=== PATIENT | female | born 1950 | race Caucasian/White ===

== ENCOUNTER → 2017-08-10 | Outpatient (CLI) | payer MEDICARE, OTHER ==
[~2017-08-10] MED LIST: PANTOPRAZOLE SO40 MG PO; PREMARIN0.3 MG PO
--- NOTE | 2017-08-13 16:00 | Diagnostic Imaging Report ---
#[id number] - MGSCRBIL #BILATERAL DIGITAL SCREENING MAMMOGRAM WITH CAD: 08/10/2017 CLINICAL: Routine screening. Comparison is made to exams dated: 10/25/2014 mammogram and 02/24/2011 mammogram - [facility] [place]. Current study contains 4 films. The tissue of both breasts is heterogeneously dense. This may lower the sensitivity of mammography. Current study was also evaluated with a Computer Aided Detection (CAD) system. There are benign calcifications in both breasts. No significant masses, calcifications, or other findings are seen in either breast. There has been no significant interval change. IMPRESSION: BENIGN There is no mammographic evidence of malignancy. A 1 year screening mammogram is recommended. The patient will be notified by letter of the results. Rian quintana/balbir:08/13/2017 12:33:57 [employer] Farmer: Damari GAITAN(R)(M), [facility] [place] letter sent: Compared to Prior B9 Mammogram BI-RADS: 2 Benign
== END ==
LOC: CARD 08:30
PROVIDERS: ATTEND Internal Medicine
DX: Z12.31 Encounter for screening mammogram for malignant neoplasm of breast (principal); R09.89 Other specified symptoms and signs involving the circulatory and respiratory systems
CPT/HCPCS: 77067; 93880

== ENCOUNTER → 2017-10-06 | Day surgery (SDC) | payer MEDICARE, OTHER ==
[2017-10-05 14:35] LABS: BASOPHILS # (AUTO) 0.1 (0.0-0.1); BASOPHILS % 0.7 % (0.0-1.0); EOSINOPHILS # (AUTO) 0.2 (0.0-0.4); EOSINOPHILS % 2.9 % (0.0-6.0); HEMATOCRIT 36.8 % (34.2-44.1); HEMOGLOBIN 11.6 g/dL (12.0-16.0); LYMPHOCYTES # (AUTO) 1.8 (1.0-3.2); LYMPHOCYTES % 26.2 % (18.0-39.1); MEAN CORPUSCULAR HEMOGLOBIN 27.8 pg (28-32); MEAN CORPUSCULAR HGB CONC 31.5 g/dL (31-35); MEAN CORPUSCULAR VOLUME 88.2 fL (81-99); MONOCYTES # (AUTO) 0.6 (0.2-0.8); MONOCYTES % 9.2 % (4.4-11.3); NEUTROPHILS # (AUTO) 4.2 (2.1-6.9); NEUTROPHILS % 60.9 % (38.7-80.0); PLATELET COUNT 390 x10e3/uL (140-360); RED BLOOD COUNT 4.17 x10e6/uL (3.6-5.1); RED CELL DISTRIBUTION WIDTH 13.9 % (11.7-14.4)
[~2017-10-06] MED LIST changes: +CALCIUM ACETAT667 M1; +FOSAMAX70 MG PO; +LIDOCAINE HCL 2% LOCAL INJ 5 ML SDV VIAL INJ ONE; +METOCLOPRAMIDE HCL 10 MG/2ML VIAL ONE; +MIDAZOLAM HCL 2 MG/2 ML VIAL ONE; +PANTOPRAZOLE 40 MG 10ML VIAL ONE; +PROPOFOL IV EMULSION 10 MG/ML 50 ML VIAL ONE
--- NOTE | 2017-10-06 15:12 | Operative Report ---
DATE OF PROCEDURE: October 06, 2017 REFERRING PHYSICIAN: Dr. Melissa Huertas. PROCEDURE PERFORMED: Esophagogastroduodenoscopy with biopsies and esophageal dilatation and pyloric channel balloon dilatation. INDICATIONS FOR ESOPHAGOGASTRODUODENOSCOPY: Dysphagia. MEDICATION: Patient was done under MAC. Please see anesthesiologist's note. PROCEDURE: With the patient in the left lateral decubitus position, the flexible fiberoptic Olympus gastroscope was introduced into the esophagus under direct visualization without any difficulty. There was some patchy erythema noted in the distal esophagus. A mild stricture was noted at the GE junction, and that was dilated to a size 52-Hungarian Taylor. The scope was then advanced with ease into the stomach, traversing a small hiatal hernia. Mucosa overlying the antrum and the body revealed some patchy areas of erythema. A moderate amount of retained undigested food was noted in the stomach, precluding visualization of the proximal two-thirds of the body. Three ulcerations were noted in the antrum up to 1 cm in size with heaped-up margins without active bleeding or stigmata of recent hemorrhage. Biopsies were obtained. The pyloric channel was strictured and could not be traversed with the scope. It was then dilated to size 20 mm per TTS balloon dilators. The pylorus was then traversed with ease with the scope, which was advanced all the way to the 2nd portion of the duodenum. The scope was then withdrawn slowly. Mucosa overlying the proximal 2nd portion and the duodenal bulb grossly appeared to be within normal limits. The scope was then withdrawn back into the stomach and retroflexed, and whatever was visualized of the fundus appeared to be within normal limits. The scope was then straightened out. It was subsequently withdrawn. Patient tolerated the procedure well. IMPRESSION: 1. Mild distal esophagitis. 2. Esophageal stricture at gastroesophageal junction dilated to a size 52-Hungarian Taylor. 3. Small sliding hiatal hernia. 4. Gastritis, mild. A moderate amount of retained food in the stomach, precluding visualization of proximal two-thirds of the body. 5. Gastric ulcers, antrum, times 3, up to 1 cm in size with heaped-up margins without active bleeding or stigmata of recent hemorrhage. Biopsies were obtained. 6. Pyloric channel stricture dilated to size 20 mm per TTS balloon dilators. PLAN: Follow up histology. Continue Protonix 40 mg 1 p.o. a.c. b.i.d. Add Carafate 1 gram p.o. a.c. t.i.d. and nightly. Job#: [id number] EV cc:MELISSA HUERTAS MD
== END | disposition home or self-care (01) ==
LOC: OR 11:34
PROVIDERS: ATTEND Internal Medicine Gastroenterology
DX: K22.2 Esophageal obstruction (principal); K25.3 Acute gastric ulcer without hemorrhage or perforation; K31.1 Adult hypertrophic pyloric stenosis; K20.8 Other esophagitis; K44.9 Diaphragmatic hernia without obstruction or gangrene; M81.0 Age-related osteoporosis without current pathological fracture; R05 Cough; Z01.810 Encounter for preprocedural cardiovascular examination; Z01.812 Encounter for preprocedural laboratory examination; Z88.3 Allergy status to other anti-infective agents; Z80.0 Family history of malignant neoplasm of digestive organs
CPT/HCPCS: 36415; 43239; 43245; 43450; 85025; 88305; 88312; 93005; C1726; J2001; J2250; J2765

== ENCOUNTER → 2018-03-16 | Day surgery (SDC) | payer MEDICARE, OTHER ==
[~2018-03-16] MED LIST changes: -LIDOCAINE HCL 2% LOCAL INJ 5 ML SDV VIAL INJ ONE; -METOCLOPRAMIDE HCL 10 MG/2ML VIAL ONE; -PANTOPRAZOLE 40 MG 10ML VIAL ONE
[2018-03-16 13:28] LABS: BASOPHILS # (AUTO) 0.1 (0.0-0.1); BASOPHILS % 0.9 % (0.0-1.0); EOSINOPHILS # (AUTO) 0.1 (0.0-0.4); HEMATOCRIT 45.7 % (34.2-44.1); HEMOGLOBIN 14.2 g/dL (12.0-16.0); LYMPHOCYTES # (AUTO) 1.8 (1.0-3.2); LYMPHOCYTES % 26.9 % (18.0-39.1); MEAN CORPUSCULAR HEMOGLOBIN 27.5 pg (28-32); MEAN CORPUSCULAR HGB CONC 31.1 g/dL (31-35); MEAN CORPUSCULAR VOLUME 88.6 fL (81-99); MONOCYTES # (AUTO) 0.5 (0.2-0.8); MONOCYTES % 7.4 % (4.4-11.3); NEUTROPHILS # (AUTO) 4.1 (2.1-6.9); NEUTROPHILS % 62.5 % (38.7-80.0); PLATELET COUNT 301 x10e3/uL (140-360); RED BLOOD COUNT 5.16 x10e6/uL (3.6-5.1); RED CELL DISTRIBUTION WIDTH 15.2 % (11.7-14.4)
[2018-03-16 16:00] VITALS: BP 145/87
--- NOTE | 2018-03-16 16:24 | Operative Report ---
DATE OF PROCEDURE: March 16, 2018 REFERRING PHYSICIAN: Melissa Huertas MD PROCEDURE PERFORMED: Esophagogastroduodenoscopy with esophageal dilatation. INDICATIONS FOR EGD: Dysphagia. MEDICATION: Patient was done under MAC. Please see anesthesiologist's note. PROCEDURE: With the patient in the left lateral decubitus position, the flexible fiberoptic Olympus gastroscope was introduced into the esophagus under direct visualization without any difficulty. The esophagus overall appeared to be within normal limits. There was a mild stricture noted at the GE junction that was dilated to size 54-Maltese Taylor. The scope was then advanced with ease into the stomach, and approximately 3 ulcers were noted in the antrum up to 4 mm in size without active bleeding or stigmata of recent hemorrhage. Biopsies were obtained and sent to stain for H. pylori. Pylorus appeared to be of normal contour and shape. It was intubated with ease, and the scope was advanced all the way to the 2nd portion of the duodenum. The scope was then withdrawn slowly. Mucosa overlying the proximal 2nd portion appeared to be within normal limits. Small serpiginous ulcers were noted in the duodenal bulb without active bleeding or stigmata of recent hemorrhage. The scope was then withdrawn back into the stomach and retroflexed. Mucosa overlying the fundus and the cardia appeared to be within normal limits. The scope was then straightened out. The scope was then subsequently withdrawn. Patient tolerated procedure well. IMPRESSION 1. Normal esophagus. 2. Stricture at gastroesophageal junction dilated to size 54-Maltese Taylor. 3. Gastric ulcers, biopsied. Biopsies sent to stain for H. pylori. 4. Duodenal ulcers without active bleeding or stigmata of recent hemorrhage. PLAN: Follow up histology. Initiate Protonix 40 mg 1 p.o. q.a.m. a.c. Job#: [id number] cc:MELISSA HUERTAS MD
== END | disposition home or self-care (01) ==
LOC: OR 12:48
PROVIDERS: ATTEND Internal Medicine Gastroenterology
DX: K29.50 Unspecified chronic gastritis without bleeding (principal); K22.2 Esophageal obstruction; K25.9 Gastric ulcer, unspecified as acute or chronic, without hemorrhage or perforation; K26.9 Duodenal ulcer, unspecified as acute or chronic, without hemorrhage or perforation; K21.9 Gastro-esophageal reflux disease without esophagitis; M19.90 Unspecified osteoarthritis, unspecified site; I34.1 Nonrheumatic mitral (valve) prolapse; I49.3 Ventricular premature depolarization; M81.0 Age-related osteoporosis without current pathological fracture; Z88.8 Allergy status to other drugs, medicaments and biological substances
CPT/HCPCS: 36415; 43239; 43450; 85025; 88305; 88312; 93005; J2250

== ENCOUNTER → 2018-08-12 | Outpatient (CLI) | payer MEDICARE, OTHER ==
[~2018-08-12] MED LIST changes: -MIDAZOLAM HCL 2 MG/2 ML VIAL ONE; -PROPOFOL IV EMULSION 10 MG/ML 50 ML VIAL ONE
--- NOTE | 2018-08-12 16:02 | Diagnostic Imaging Report ---
EXAM: BONE MINERAL DENSITY HISTORY: Bone mineralization evaluation COMPARISON: None DISCUSSION: Evaluation of the left hip and lumbar spine was performed utilizing DEXA Hologic bone densitometer. The study is technically adequate. Left hip femoral neck bone mineral density: 0.53 g/cm2, T-score is -2.8, Z-score is -1.2. Left hip total bone mineral density: 0.64 g/cm2, T-score is -2.4, Z-score is -1.1. Lumbar spine total bone mineral density: 0.83 gm/cm2, T-score is -2.0, Z-score is 0.0. Impression: Bone mineralization by WHO Classification is osteoporosis, the fracture risk is increased. Signed by: Dr. Jignesh Padilla M.D. on 08/12/2018 3:59 PM
== END ==
LOC: MAMMO 14:26
PROVIDERS: ATTEND Internal Medicine
DX: Z12.31 Encounter for screening mammogram for malignant neoplasm of breast (principal); M81.0 Age-related osteoporosis without current pathological fracture
CPT/HCPCS: 77067; 77080